=== PATIENT | female | born 1955 | race Caucasian/White ===

== ENCOUNTER 2017-04-14 12:56 | Emergency (ER) | payer MEDICAID ==
[2017-04-14 12:57] VITALS: BMI 38.9
[2017-04-14 13:08] VITALS: BP 143/65; PULSE 82; RESP 20; TEMP 98.6; O2SAT 98
--- NOTE | 2017-04-14 13:20 | C.PDOC ---
History Of Present Illness 61 y/o female presents to the ED for evaluation of left ear pain for the last 6 days. Patient states that she noticed foul smelling discharge from the left ear yesterday. Otherwise, denies any change in hearing, cough, congestion, sore throat, or fever. Time Seen by Provider: 04/14/17 13:14 Chief Complaint (Nursing): ENT Problem History Per: Patient History/Exam Limitations: None Onset/Duration Of Symptoms: Days (6) Current Symptoms Are (Timing): Still Present Quality (Ear): Pain W/Touch, Discharge. denies: Redness, Swelling, Foreign Body Past Medical History Reviewed: Historical Data, Nursing Documentation, Vital Signs Vital Signs: Last Vital Signs Temp 98.6 F 04/14/17 13:06 Pulse 82 04/14/17 13:06 Resp 20 04/14/17 13:06 BP 143/65 04/14/17 13:06 Pulse Ox 98 04/14/17 13:38 - Medical History PMH: Anxiety, Asthma, Depression, HTN, Hypothyroidism Surgical History: Appendectomy, Cholecystectomy, Tonsillectomy - [facility] Procedures APPLICATION OF SPLINT (04/28/14) COLONOSCOPY (12/05/13) NEBULIZER THERAPY (06/16/04) Family History: States: CAD - Social History Hx Tobacco Use: No Hx Alcohol Use: No Hx Substance Use: No - Immunization History Hx Tetanus Toxoid Vaccination: No Hx Influenza Vaccination: No Hx Pneumococcal Vaccination: No Review Of Systems Except As Marked, All Systems Reviewed And Found Negative. Constitutional: Negative for: Fever, Chills ENT: Positive for: Ear Pain, Ear Discharge. Negative for: Nose Discharge, Nose Congestion, Throat Pain, Throat Swelling Respiratory: Negative for: Cough, Shortness of Breath Skin: Negative for: Rash Neurological: Negative for: Headache, Dizziness Physical Exam - Physical Exam Appears: Non-toxic, No Acute Distress Skin: Normal Color, Warm, Dry, No Rash Head: Atraumatic, Normacephalic Eye(s): bilateral: Normal Inspection, EOMI Ear(s): Left: Other (exudates to canal with clear fluid), Right: Normal Nose: Normal, No Discharge Oral Mucosa: Moist Tongue: Normal Appearing Lips: Normal Appearing Throat: Normal, No Erythema, No Exudate, No Drooling Neck: Normal ROM, Supple Cardiovascular: Rhythm Regular, No Murmur Respiratory: Normal Breath Sounds, No Accessory Muscle Use, No Rales, No Rhonchi , No Wheezing Neurological/Psych: Oriented x3, Normal Speech ED Course And Treatment O2 Sat by Pulse Oximetry: 98 (RA) Pulse Ox Interpretation: Normal Medical Decision Making Medical Decision Making: Patient with left ear pain. Exam reveals fluid and exudates, consistent with acute OE. Will treat with otic drops. Patient is being discharged home with Rx, and is instructed to follow up with ENT. Disposition Counseled Patient/Family Regarding: Need For Followup, Rx Given - Disposition Referrals: Shamar Banuelos MD [Staff Provider] - Disposition: HOME/ ROUTINE Disposition Time: 13:19 Condition: STABLE Additional Instructions: Apply ear drops to affected ear 2-3 times a day Follow up with ENT if symptoms persist May take Ibuprofen or Tylenol for any pain as needed every 6-8 hours Prescriptions: Ofloxacin Otic 0.3% [Floxin 0.3% Otic Soln] 2 drop BID #1 bottle Instructions: Otitis Externa (ED) Forms: [employer] (Citizen [place]) - POA Present On Arrival: None - Clinical Impression Clinical Impression: Otitis externa - PA / TAX REVENUE OFFICER / Resident Statement MD/DO has reviewed & agrees with the documentation as recorded. - Scribe Statement The provider has reviewed the documentation as recorded by the Scribe Chloe Her All medical record entries made by the Scribe were at my direction and personally dictated by me. I have reviewed the chart and agree that the record accurately reflects my personal performance of the history, physical exam, medical decision making, and the department course for this patient. I have also personally directed, reviewed, and agree with the discharge instructions and disposition.
== END 2017-04-14 13:55 | disposition home or self-care (01) ==
LOC: C.ER 12:56
DX: H60.92 Unspecified otitis externa, left ear (principal)